=== PATIENT | male | born 1955 | race African-American/Black ===

== ENCOUNTER 2016-07-21 18:28 | Inpatient (IN) | payer OTHER ==
[~2016-07-21] VITALS: Ht 189.5 cm; Wt 107.5 kg
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
--- NOTE | ~2016-07-21 | PR ---
[place], [place] PROGRESS NOTE NAME: CRESENCIO SORTO UNIT #: [id number] ROOM: 310 DOCTOR: OMAR SWAIN BIRTHDATE: [birth year] DOS: 07/26/2016 CHIEF COMPLAINT: "Good morning." SUMMARY OF VISIT: The patient was interviewed in the dining room, where he is watching TV. Very calm, good eye contact. He did ask if he will go home today, and I said it was most likely tomorrow, and he was okay with that. He asked where he would be going, will he be going to his house, I said no, [place]. It initially irritated him, but then he said he "you know what, that is okay, that is where all my stuff is," and he redirected himself without my intervention. MENTAL STATUS: He is alert and oriented to person, place. No overt signs of auditory hallucinations or visual hallucinations. No delusions or paranoia at this time during our conversation. There are some short term memory deficits, but overall intact. PLAN: We are going to continue with his current psychotropics. He seems to be stabilizing. If he is still good tomorrow, we may look at getting him back to [place]. KELLIE SWAIN CNP CM:PNTRANS [id number] OMAR SWAIN 07/27/16 0025 interface
--- NOTE | ~2016-07-21 | PR ---
[place], [place] PROGRESS NOTE NAME: CRESENCIO SORTO UNIT #: [id number] ROOM: 310 DOCTOR: IVET LÓPEZ MD BIRTHDATE: [birth year] DOS: 07/27/2016 CHIEF COMPLAINT: "Sex, sex, sex." SUMMARY OF THE VISIT: The patient was interviewed in the dining area at first he was sitting and engaged in relatively normal conversation then he abruptly stood up, looked around the room and said "sex, sex, sex." He was pleasant; however, he did not offer any agitation or aggression. Nurses report that he is somewhat anxious and the anxiety seems to start triggering some of the agitation. He denied restlessness and did not appear to be akathisia. MENTAL STATUS: He is alert and oriented with time gaps. Mood is still labile. Affect is still inappropriate at times. He jumps from [id number] and has a hard time staying on the here and now. PLAN: I will go ahead and renew his Ativan in case he requires it. I have written for the Invega Sustenna 234 mg IM to be given on the first of the month of August and Haldol decanoate 200 mg IM to be given in the middle of the month on 08/19/2015. I will discontinue his Restoril trying to simplify his regimen given the fact there seems to be an anxiety component that stimulates his agitation. I will start him on Klonopin 1 mg in the morning and 2 mg at bedtime to try to stabilize his mood and decrease his anxiety with the resultant agitation that occurs. Engage him in individual and carias milieu activity with the plan then to return back to [place] when psychiatrically stable. IVET LÓPEZ MD CM:PNTRANS [id number] IVET LÓPEZ MD 08/31/16 1058 interface
--- NOTE | ~2016-07-21 | PR ---
[place], [place] PROGRESS NOTE NAME: CRESENCIO SORTO UNIT #: [id number] ROOM: 310 DOCTOR: JUSTIN NUNES DO BIRTHDATE: [birth year] DOS: 07/24/2016 CHIEF COMPLAINT: "I cannot." SUMMARY OF VISIT: The patient was interviewed in the dining room while he ate the breakfast. The patient stated that he is unable to shake hands because he has maple syrup on his hands. SUBJECTIVE: The patient was not verbal or physically aggressive at this time. The patient is actively hallucinating and paranoid. The patient had poor eye content during the conversation and was looking up and away. MENTAL STATUS: He is alert and oriented to person, unclear of place and unclear of time. The patient is actively hallucinating. The patient is delusional and at times paranoid. The patient can be physically aggressive, but at this time, the patient is trending towards euthymia. PLAN: 1. The patient has stated that he has had problems sleeping. We will start Restoril at night 7.5 mg. 2. Continue current psychiatric medical management with the hopes of reducing pill numbers due to the patient being paranoid about the amount of pills he takes. We will continue to try to stabilize him and encouraged him to participate in individual and carias milieu activities with the hopes of returning to [place] when psychiatrically stable. JUSTIN NUNES DO IVET LÓPEZ MD CM:PNTRANS 2 6 JUSTIN NUNES DO 07/24/1626 interface
--- NOTE | ~2016-07-21 | PR ---
[place], [place] PROGRESS NOTE NAME: CRESENCIO SORTO UNIT #: [id number] ROOM: 310 DOCTOR: IVET LÓPEZ MD BIRTHDATE: [birth year] DOS: 07/24/2016 ADDENDUM: Above note reviewed. Agree with observations, recommendations, and overall treatment plan. IVET LÓPEZ MD CM:PNTRANS [id number] IVET LÓPEZ MD 09/18/16 1428 interface
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
--- NOTE | ~2016-07-21 | PR ---
[place], [place] PROGRESS NOTE NAME: CRESENCIO SORTO UNIT #: [id number] ROOM: 310 DOCTOR: OMAR SWAIN BIRTHDATE: [birth year] DOS: 07/25/2016 CHIEF COMPLAINT: "Good morning, what's your name again." SUMMARY OF VISIT: The patient was interviewed in the dining room. He engaged readily in conversation, was pleasant, good eye contact. Apparently, there were some behaviors last night watching the inauguration of [employer] Liang, the channel was changed and the patient calmed down. MENTAL STATUS: He is alert and oriented to person and place, unsure about time. No overt signs of hallucinating, but he was yesterday according to nurses. There could be some delusions and paranoia at times, but the patient is starting to be a little bit more redirectable. PLAN: He was started on Restoril last night, states that his sleep was good. We will continue his other psychotropics, try to engage in individual and carias milieu therapy, redirect when we can, behavior modifications when he can and long-term goal is to get him back to [facility] once stable. KELLIE SWAIN CNP CM:PNTRANS [id number] OMAR SWAIN 07/25/16 1523 interface
--- NOTE | ~2016-07-21 | PR ---
[place], [place] PROGRESS NOTE NAME: CRESENCIO SORTO UNIT #: [id number] ROOM: 310 DOCTOR: OMAR SWAIN BIRTHDATE: [birth year] DOS: 07/23/2016 CHIEF COMPLAINT: "Good morning." SUMMARY OF VISIT: The patient was interviewed in the dining room where he had just finished breakfast. It should be noted that it took apparently 6-10 people last night to transfer him to [facility] for an hour. Last night, he became physically and verbally aggressive, threatening to harm self and others. When the nurses spoke to him this morning, he stated it was because of the attempts to check his blood sugar and the number of pills that he is being required to take. I am going to go ahead and DC the blood glucose checks. His blood glucoses have been within normal limits. I am familiar with him from [facility]. He refuses to let them check his sugars at [facility], so it is really moot point, if this is causing this kind of progression. As far as his medications, Dr. Og reviewed all his medications. We will try to simplify as much as possible and let him know this and he was grateful. The patient is actively hallucinating and paranoid like he was last night. When I was talking to him, he was looking away and looking up, but I was able to get some eye contact and a decent conversation with him at times. MENTAL STATUS: He is alert and oriented to person, place, I do not know about time, but again actively hallucinating, delusional and paranoid at times, physically aggressive. PLAN: Again, we simplified medications as much as possible. He just received his Invega Sustenna injection, the first of the month. We are keeping the Haldol at night, but we are trying to get it into 1 pill, instead of 4 small pills since a number of pills is an issue with him. He has no side effects of any of the medications at this point in time. We will continue to try to stabilize him with a long-term goal to get him back to [facility] once stable. KELLIE SWAIN CNP CM:PNTRANS 0801 0000 OMAR SWAIN 08/31/16 1101 interface
[~2016-07-21 18:28] MED LIST: ARICEPT5 M1 PO; ASPIRIN325 M2 PO; ATORVASTATIN CA20 M1 PO; BENZTROPINE MESY1 MG PO; CELEXA40 MG PO; COL-RITE100 M1 PO; DEPAKOTE DR500 MG PO; DICYCLOMINE HCL20 MG PO; GLUCOPHAGE1000 MG PO; INVEGA SUSTENN156 MG IM; KOSHER PRENATA1 EACH PO; LACTULOSE20 GM/30 M PO; LANTUS100 U/ML SQ; LATU80TA PO; LISINOPRIL10 M1 PO; LISINOPRIL5 MG PO; METOPROLOL SUC100 M1 PO; MIRTAZAPINE15 M2 PO; MOM30 M1 PO; POLYETHYLENE GL1 P16; Ranitidine Hyd150 MG PO; SEROQUEL XR400 MG PO; TRAZODONE150 MG PO; TYLENOL325 M2 PO; VISTARIL50 MG PO; VITAMIN D50000 I3 PO
[2016-07-21] MEDS ORDERED: HALDOL5 MG PO ×2 (19:31→19:32)
[2016-07-21] MEDS ORDERED: INVEGA SUSTENN234 MG IM (19:33)
[2016-07-21 23:18] VITALS: BP 138/85
[2016-07-21 23:24] VITALS: BP 138/85
[2016-07-22 00:36] VITALS: BP 138/85
[2016-07-22 07:40] LABS: BASO % 0.6 % (0.0-1.0); EOS # 0.1 10*3/uL (0.0-0.4); EOS % 2.1 % (1.0-4.0); HEMATOCRIT 36.8 % (42.0-52.0); HEMOGLOBIN 11.9 g/dl (14.0-18.0); LYMPH % 21.7 % (27.0-41.0); MEAN CELL VOLUME 92.5 fl (80.0-94.0); MEAN CORPUSCULAR HGB 29.9 pg (27.0-31.0); MEAN CORPUSCULAR HGB CONC 32.3 g/dl (33.0-37.0); MEAN PLATELET VOLUME 10.3 fl (9.6-12.3); MONO # 0.4 10*3/uL (0.1-1.0); MONO % 9.4 % (3.0-9.0); NEUT # 3.1 10*3/uL (2.3-7.9); PLATELET COUNT AUTOMATED 222 10*3/uL (130-400); RED BLOOD COUNT 3.98 10*6/uL (4.50-5.90); RED CELL DISTRI WIDTH 13.2 % (0-14.5); WHITE BLOOD COUNT 4.7 10*3/uL (4.8-10.8)
[2016-07-22 07:56] VITALS: BP 125/80
[2016-07-22 08:31] LABS: ALBUMIN 3.5 gm/dl (3.1-4.5); ALKALINE PHOSPHATASE 114 U/L (45-117); BILIRUBIN, TOTAL 0.3 mg/dl (0.2-1.0); BUN 14 mg/dl (7-24); CARBON DIOXIDE 28 mmol/L (21-32); CHLORIDE 106 mmol/L (98-107); CHOLESTEROL 135 mg/dL (<200); EST GLOM FILT AFRICAN AMERICAN > 60 ml/min; GLUCOSE 112 mg/dL (65-99); HDL CHOLESTEROL 48 mg/dl (40-60); LDL CHOLESTEROL 78 mg/dL (9-159); SGOT/AST 14 IU/L (3-35); SGPT/ALT 27 U/L (12-78); SODIUM 143 mmol/L (136-145); TOTAL PROTEIN 7.4 gm/dL (6.4-8.2); TRIGLYCERIDES 47 mg/dl (<150); VLDL CHOLESTEROL 9 mg/dL (6-40)
[2016-07-22 09:44] LABS: VITAMIN D, 25-HYDROXY 94.2 ng/mL (30-100)
[2016-07-22 10:26] LABS: FOLIC ACID > 24.00 ng/mL (>5.38)
[2016-07-22 19:50] VITALS: BP 126/72
[2016-07-23 07:39] VITALS: BP 136/75
[2016-07-23 20:00] VITALS: BP 132/78
[2016-07-24 07:58] LABS: BILIRUBIN NEGATIVE (NEGATIVE); BLOOD NEGATIVE (NEGATIVE); CLARITY CLEAR (CLEAR); COLOR YELLOW (YELLOW); GLUCOSE NEGATIVE (NEGATIVE); KETONE NEGATIVE (NEGATIVE); LEUKO ESTERASE NEGATIVE (NEGATIVE); NITRITE NEGATIVE (NEGATIVE); PROTEIN NEGATIVE (NEGATIVE); SPECIFIC GRAVITY <= 1.005 (1.005-1.030); UROBILINOGEN 0.2 E.U./dl (0.2-1.0)
[2016-07-24 08:35] VITALS: BP 135/79
[2016-07-24 08:51] LABS: URINE REFLEX COMMENT NO (NO)
[2016-07-25 07:49] VITALS: BP 131/71
[2016-07-25 19:36] VITALS: BP 143/73
[2016-07-26 07:47] VITALS: BP 115/87
[2016-07-27 08:10] VITALS: BP 136/73
[2016-07-27 19:58] VITALS: BP 130/76
[2016-07-27 20:00] VITALS: BP 130/76
[2016-07-28 07:36] VITALS: BP 133/84
[2016-07-28] MEDS ORDERED: VITAMIN D50000 I3 PO (09:03)
[2016-07-28] MEDS ORDERED: HALDOL5 MG PO (09:03)
[2016-07-28] MEDS ORDERED: INVEGA SUSTENN234 MG IM (09:03)
[2016-07-28] MEDS ORDERED: INVEGA6 MG PO (09:03)
[2016-07-28] MEDS ORDERED: HALOPERIDO100 MG/1 M IM (09:03)
[2016-07-28] MEDS ORDERED: KLONOPIN2 M1 PO (09:03)
[2016-07-28] MEDS ORDERED: BENZTROPINE MESY1 MG PO (09:03)
[2016-07-28] MEDS ORDERED: CLONAZEPAM1 MG PO (09:03)
== END 2016-07-28 13:15 | DRG 885 ==
LOC: 3N 18:28
PROVIDERS: Psychiatry & Neurology Psychiatry
DX: F25.9 Schizoaffective disorder, unspecified (principal); E11.22 Type 2 diabetes mellitus with diabetic chronic kidney disease; F23 Brief psychotic disorder; E11.65 Type 2 diabetes mellitus with hyperglycemia; N18.9 Chronic kidney disease, unspecified; E78.5 Hyperlipidemia, unspecified; K21.9 Gastro-esophageal reflux disease without esophagitis; D64.9 Anemia, unspecified; I12.9 Hypertensive chronic kidney disease with stage 1 through stage 4 chronic kidney disease, or unspecified chronic kidney disease; Z98.890 Other specified postprocedural states; Z83.3 Family history of diabetes mellitus; Z79.899 Other long term (current) drug therapy; Z79.84 Long term (current) use of oral hypoglycemic drugs; Z79.82 Long term (current) use of aspirin; Z72.0 Tobacco use

== ENCOUNTER 2017-05-31 13:47 | Inpatient (IN) | payer OTHER ==
[~2017-05-31] VITALS: Ht 187.9 cm; Wt 118.9 kg
--- NOTE | ~2017-05-31 | PR ---
[place], [place] PROGRESS NOTE NAME: CRESENCIO SORTO UNIT #: [id number] ROOM: 314 DOCTOR: IVET LÓPEZ MD BIRTHDATE: [birth year] DOS: 06/03/2017 INTERVAL NOTE. CHIEF COMPLAINT: "Good morning, do I get to go home soon, I am ready." SUMMARY OF THE VISIT: The patient was interviewed in his room. He was sitting at the edge of his bed, getting ready for breakfast. He engaged in meaningful conversation and reported no complaints, stating that he slept well and feels well and was asking when he would be going back to [facility]. Staff note that his behavior has been under control. He has not exhibited mood lability or agitation and his psychotic symptoms seem to have waned in both frequency and intensity. He is tolerating the current medications well, and I noticed no sedation, somnolence, extrapyramidal symptoms or tardive dyskinesia. MENTAL STATUS: He is alert and oriented with just mild time gaps. Mood does seem to be significantly trending towards euthymia and affect is much more appropriate. There are no symptoms of floridalma or hypomania. There are no overt auditory or visual hallucinations. No voiced delusions. Memory for the most part is intact. PLAN: Given the fact that I did adjust his Klonopin dose upon admission, I will check a clonazepam level in the morning to ensure that it is therapeutic and not too high leading to increased side effects. We will continue to engage him in individual and carias milieu activity with the plan to return to [facility] when stable. IVET LÓPEZ MD CM:PNTRANS 0841 IVET LÓPEZ MD 06/03/17 0904 interface
--- NOTE | ~2017-05-31 | PR ---
[place], [place] PROGRESS NOTE NAME: CRESENCIO SORTO UNIT #: [id number] ROOM: 314 DOCTOR: CHRIS PETERS,JACY BIRTHDATE: [birth year] DOS: CHIEF COMPLAINT: "I like breakfast." SUBJECTIVE: The patient is seen today, sitting in dining area, just had his breakfast, which he liked. He did engage, but his talk did not make much sense. He is still internally occupied and psychotic. He did smile at times, but did not stay engaged and ended the conversation. MENTAL STATUS EXAMINATION: The patient is awake, alert, did not answer the questions, broken eye contact, speech garbled, did not make much sense, very disorganized in his thoughts, seems responding to unseen. PLAN: The patient needs further stabilization, shall continue his care and try and engage him in carias milieu as he is more stable. JACY PEREZ MD CM:PNTRANS [id number] JACY PEREZ MD 06/06/17 1058 interface
--- NOTE | ~2017-05-31 | PR ---
[place], [place] PROGRESS NOTE NAME: CRESENCIO SORTO UNIT #: [id number] ROOM: 314 DOCTOR: IVET LÓPEZ MD BIRTHDATE: [birth year] DOS: 06/02/2017 CHIEF COMPLAINT: "I need some toothpaste and my shruthi is clean." SUMMARY OF THE VISIT: The patient was interviewed in his room. He was resting in bed, but did awake quickly, sat at the edge of his bed and engaged in reasonable conversation with me. He first requested that I find his jeans for him and later requested that I also get him some toothpaste. He was very goal directed in his speech, very much on target. It was not until we were done with conversation did he start mumbling nonsensically under his breath. Nurses report that overall he has been much more compliant. He has been following direction and he has not been agitated or aggressive. He has tolerated the medication regimen well and I see no tardive dyskinesia, extrapyramidal symptoms, sedation or somnolence. MENTAL STATUS: He is alert and oriented. Mood does seem to be strongly trending towards euthymia. Affect is much more appropriate. There are no symptoms of floridalma or hypomania. The psychotic symptoms are much less intense and less frequent. Memory for the most part is intact. PLAN: Maintain his current psychotropic regimen, which includes Invega Sustenna 234 mg monthly with Haldol Decanoate 300 mg monthly, Klonopin 1 mg twice a day and 2 mg at bedtime. I did discuss with the patient his wishes and whether he wanted to return back to [facility] when psychiatrically stable and he resoundingly said he likes it at [facility] and would like to go back. We will plan to discharge then when psychiatrically stable. IVET LÓPEZ MD CM:PNTRANS 0751 IVET LÓPEZ MD 06/02/17 0925 interface
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
--- NOTE | ~2017-05-31 | PR ---
[place], [place] PROGRESS NOTE NAME: CRESENCIO SORTO UNIT #: [id number] ROOM: 314 DOCTOR: MELANY KWONG,MY BIRTHDATE: [birth year] DOS: 06/04/2017 CHIEF COMPLAINT: "Good morning." SUMMARY OF THE VISIT: The patient was interviewed in the dining room just finished his breakfast. States he slept alright last night and feels great today. He has no complaints or concerns today. He expresses his interest to be discharged to somewhere else besides [facility]. He is tolerating the current medications well. No sedation, somnolence or extra pyramidal symptoms or dyskinesia noted. MENTAL STATUS: The patient is alert and oriented with some time gaps, appropriate affect. Mood is somewhat trending towards euthymia. No symptoms of floridalma or hypomania. There are no overt auditory or visual hallucinations, or delusions. Recent memory intact. PLAN: Klonopin level is pending. RPR nonreactive. We will continue to engage the patient in individual and carias milieu activity with the plan to be discharged when he is psychiatrically stable. Nothing changed on his medication, we are going to maintain the same current treatment. MY DO MELANY IVET LÓPEZ MD CM:PNLAINEY [id number] ANTOINE MOSLEY DO 06/04/17 1205 interface
--- NOTE | ~2017-05-31 | PR ---
[place], [place] PROGRESS NOTE NAME: CRESENCIO SORTO UNIT #: [id number] ROOM: 314 DOCTOR: CHRIS PETERS,JACY BIRTHDATE: [birth year] DOS: CHIEF COMPLAINT: "I had breakfast." SUBJECTIVE: The patient is 61-year-old male, resident of [facility] in [place], has long history of schizoaffective disorder and has been in treatment for long. He had exacerbation of his symptoms due to noncompliance and then he had been observed to be internally occupied, responding to unseen and hearing some voices. Today he is seen in dining area, sitting in chair, did have some talks, but did not make much sense. He is still very psychotic, internally occupied, responding to unseen. As per nurse's report, he did sleep okay last night, had his meals. He has been calmer and has been taking his medicines now. MENTAL STATUS EXAMINATION: The patient is alert, awake. He could engage, but did not make meaningful conversation. He is still internally occupied and responding to unseen. PLAN: The patient needs further stabilization, shall continue his care and try to engage him with carias heart milieu as he is more stable. JACY PEREZ MD CM:PNTRANS [id number] JACY PEREZ MD 06/05/17 1041 interface
[~2017-05-31 13:47] MED LIST changes: +CLONAZEPAM1 MG PO; +HALDOL5 MG PO; +HALOPERIDO100 MG/1 M IM; +INVEGA SUSTENN234 MG IM; +INVEGA6 MG PO; +KLONOPIN2 M1 PO; +LANTUS SOL100 UNIT/1 SC; -LANTUS100 U/ML SQ
[2017-05-31] MEDS ORDERED: BIOFREEZE118 ML T (14:00)
[2017-05-31 16:38] VITALS: BP 153/89
[2017-05-31 20:00] VITALS: BP 139/87
[2017-06-01 04:45] LABS: BASO % 0.7 % (0.0-1.0); EOS # 0.3 10*3/uL (0.0-0.4); EOS % 5.4 % (1.0-4.0); HEMATOCRIT 37.8 % (42.0-52.0); HEMOGLOBIN 12.3 g/dl (14.0-18.0); LYMPH # 1.3 10*3/uL (1.3-4.4); LYMPH % 24.1 % (27.0-41.0); MEAN CELL VOLUME 90.6 fl (80.0-94.0); MEAN CORPUSCULAR HGB 29.5 pg (27.0-31.0); MEAN CORPUSCULAR HGB CONC 32.5 g/dl (33.0-37.0); MEAN PLATELET VOLUME 10.3 fl (9.6-12.3); MONO # 0.6 10*3/uL (0.1-1.0); MONO % 10.6 % (3.0-9.0); NEUT # 3.2 10*3/uL (2.3-7.9); PLATELET COUNT AUTOMATED 230 10*3/uL (130-400); RED BLOOD COUNT 4.17 10*6/uL (4.50-5.90); RED CELL DISTRI WIDTH 13.3 % (0-14.5); WHITE BLOOD COUNT 5.4 10*3/uL (4.8-10.8)
[2017-06-01 05:02] LABS: ALBUMIN 3.4 gm/dl (3.1-4.5); ALKALINE PHOSPHATASE 138 U/L (45-117); BUN 16 mg/dl (7-24); CHLORIDE 102 mmol/L (98-107); CHOLESTEROL 149 mg/dL (<200); CREATININE 1.12 mg/dL (0.70-1.30); HDL CHOLESTEROL 41 mg/dl (40-60); LDL CHOLESTEROL 64 mg/dL (9-159); POTASSIUM 3.8 mmol/L (3.5-5.1); SGOT/AST 15 IU/L (3-35); SODIUM 136 mmol/L (136-145); TOTAL PROTEIN 7.7 gm/dL (6.4-8.2); TRIGLYCERIDES 220 mg/dl (<150); VLDL CHOLESTEROL 44 mg/dL (6-40)
[2017-06-01 05:11] LABS: SGPT/ALT 45 U/L (12-78); THYROID STIM HORMONE (HS) 0.972 uIU/ml (0.358-4.75)
[2017-06-01 07:59] LABS: VITAMIN D, 25-HYDROXY 45.4 ng/mL (30-100)
[2017-06-01 08:10] VITALS: BP 163/89
[2017-06-01 20:09] VITALS: BP 143/84
[2017-06-02 08:00] VITALS: BP 154/77
[2017-06-02 20:00] VITALS: BP 134/71
[2017-06-03 08:10] VITALS: BP 136/87
[2017-06-03 20:00] VITALS: BP 130/75
[2017-06-04 07:46] VITALS: BP 140/68
[2017-06-04 20:00] VITALS: BP 126/82
[2017-06-05 08:05] VITALS: BP 118/72
[2017-06-05 19:52] VITALS: BP 137/82
[2017-06-06 08:01] VITALS: BP 140/79
[2017-06-06 20:00] VITALS: BP 139/76
[2017-06-07 07:48] VITALS: BP 154/83
[2017-06-07] MEDS ORDERED: HALOPERIDO100 MG/1 M IM (09:05)
[2017-06-07] MEDS ORDERED: Vitamin D PO (09:05)
[2017-06-07] MEDS ORDERED: KLONOPIN2 M1 PO (09:05)
[2017-06-07] MEDS ORDERED: LACTULOSE20 GM/30 M PO (09:05)
[2017-06-07] MEDS ORDERED: BENZTROPINE MESY1 MG PO (09:05)
[2017-06-07] MEDS ORDERED: INVEGA SUSTENN234 MG IM (09:05)
[2017-06-07] MEDS ORDERED: CLONAZEPAM1 MG PO ×2 (09:05)
[2017-06-08 00:10] LABS: CLONAZEPAM (KLONOPIN),SERUM 10 ng/mL (20-70)
== END 2017-06-07 11:22 | disposition home or self-care (01) | DRG 885 ==
LOC: 3N 13:47
PROVIDERS: ADMIT Psychiatry & Neurology Psychiatry
DX: F25.9 Schizoaffective disorder, unspecified (principal); E11.22 Type 2 diabetes mellitus with diabetic chronic kidney disease; F23 Brief psychotic disorder; N18.9 Chronic kidney disease, unspecified; K21.9 Gastro-esophageal reflux disease without esophagitis; E78.5 Hyperlipidemia, unspecified; I12.9 Hypertensive chronic kidney disease with stage 1 through stage 4 chronic kidney disease, or unspecified chronic kidney disease; F17.200 Nicotine dependence, unspecified, uncomplicated; D64.9 Anemia, unspecified; Z79.899 Other long term (current) drug therapy; Z83.3 Family history of diabetes mellitus

== ENCOUNTER 2017-08-31 22:09 | Inpatient (IN) | payer OTHER ==
[~2017-08-31] VITALS: Ht 187.9 cm; Wt 113.9 kg
--- NOTE | ~2017-08-31 | PR ---
[place], [place] PROGRESS NOTE NAME: CRESENCIO SORTO UNIT #: [id number] ROOM: 314 DOCTOR: BASIM LAZCANO MD BIRTHDATE: [birth year] DOS: 09/03/2017 SUBJECTIVE: The patient seen and spoke with the staff. Per staff, the patient was very agitated yesterday and almost attacked to staff, only took the Klonopin. He needed p.r.n. IM stat medication. The patient was on his bed. He was sleepy as he received stat medication last night, but he mentioned that he is doing well. Did not express any other bone problems or concerns. The patient was pleasant, cooperative. He reports doing well. He denied any auditory or visual hallucination. He denies any side effect from the medication also. MENTAL STATUS EXAMINATION: Pleasant, cooperative. Describes his mood as "okay." Affect sleepy and tired. Thought process goal directed. No flight of ideas, loosening of association. He denied auditory or visual hallucination. No delusion or paranoia noted. He denied suicidal ideation, intent or plan. He also denied homicidal ideation, intent or plan. ASSESSMENT: Schizoaffective disorder. PLAN: 1. Continue current medications and care. 2. Add Depakote 1000 mg p.o. b.i.d. 3. Continue redirection. BASIM LAZCANO MD CM:PNTRANS [id number] BASIM LAZCANO MD 09/04/17 0018 interface
--- NOTE | ~2017-08-31 | PR ---
[place], [place] PROGRESS NOTE NAME: CRESENCIO SORTO UNIT #: [id number] ROOM: 314 DOCTOR: BASIM LAZCANO MD BIRTHDATE: [birth year] DOS: 09/05/2017 SUBJECTIVE: The patient seen and I spoke with the staff. Per staff, the patient took the Depakote last night. No behavior problems or issues. He also got the Haldol Decanoate injection. The patient was on his bed. He got up when I called his name. He reports doing well. He looks calm and cooperative. Denied depressed mood or hopelessness. Denied any psychotic symptoms. MENTAL STATUS EXAMINATION: Pleasant, cooperative, described his mood as "okay." Affect, mood congruent. Thought process goal directed. No flight of ideas, loosening of association. He denied auditory or visual hallucination. No delusion or paranoia noted. He denied suicidal ideation, intent or plan. He also denied any homicidal ideation, intent or plan. ASSESSMENT: Schizoaffective disorder. PLAN: 1. Continue current medication and care. 2. Continue redirection. 3. Supportive care. BASIM LAZCANO MD CM:PNTRANS [id number] [phone] BASIM LAZCANO MD 09/05/172149 interface
--- NOTE | ~2017-08-31 | PR ---
[place], [place] PROGRESS NOTE NAME: CRESENCIO SORTO UNIT #: [id number] ROOM: 314 DOCTOR: IVET LÓPEZ MD BIRTHDATE: [birth year] DOS: 09/06/2017 CHIEF COMPLAINT: "I had a good weekend doctor, how about you." SUMMARY OF THE VISIT: The patient was interviewed as he was finishing his breakfast in the dining area. He engaged readily in pleasant conversation. He reports that he had a good weekend that the medicines are working and he is anxious to go back to [place]. He states that he realizes he might have to wait a day when we get transportation, even knew which type of transportation he would get. He convincingly denies medication side effects. MENTAL STATUS: He is alert and oriented. Mood does seem to be euthymic. Affect is more appropriate. There is no floridalma or hypomania. There are no psychotic symptoms. Memory for the most part is fully intact. PLAN: I will maintain his current psychotropic regimen as he is getting benefit without side effects. We will finalize what we need to do for discharge and discharge to the least restrictive environment when psychiatrically stable. IVET LÓPEZ MD CM:PNTRANS [id number] IVET LÓPEZ MD 09/06/17 1016 interface
--- NOTE | ~2017-08-31 | PR ---
[place], [place] PROGRESS NOTE NAME: CRESENCIO SORTO UNIT #: [id number] ROOM: 314 DOCTOR: BASIM LAZCANO MD BIRTHDATE: [birth year] DOS: 09/04/2017 SUBJECTIVE: The patient seen and spoke with the staff. Per staff, the patient was agitated at times, mostly when blood sugar checked, but otherwise he is much calmer. Reportedly, he refused his a.m. Depakote. The patient was pleasant and cooperative. He was in the day area. When I asked him that why he refused Depakote, he did not tell me anything, but said that he will take the Depakote from now on. He reports doing well. Did not express any problems or concerns. Denied any side effect from the medication. MENTAL STATUS EXAMINATION: Pleasant, cooperative. Described his mood as "okay " Affect, mood congruent. Thought process, goal directed. No flight of ideas or loosening of association. He denies auditory or visual hallucination. No delusion or paranoia noted. He denied any suicidal ideation, intent or plan. He also denied any homicidal ideation, intent or plan. ASSESSMENT: Schizoaffective disorder. PLAN: 1. Continue current medication and care. 2. Continue redirection. 3. Encourage activities and groups. BASIM LAZCANO MD CM:PNTRANS [id number] BASIM LAZCANO MD 09/04/17 2314 interface
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
[~2017-08-31 22:09] MED LIST changes: +BIOFREEZE118 ML T; +Vitamin D PO
[2017-08-31] MEDS ORDERED: HALDOL5 MG PO (22:44)
[2017-09-01 15:06] VITALS: BP 150/86
[2017-09-01 15:55] LABS: BASO % 0.7 % (0.0-1.0); EOS # 0.1 10*3/uL (0.0-0.4); EOS % 2.2 % (1.0-4.0); HEMATOCRIT 38.9 % (42.0-52.0); HEMOGLOBIN 13.1 g/dl (14.0-18.0); LYMPH % 35.6 % (27.0-41.0); MEAN CELL VOLUME 89.6 fl (80.0-94.0); MEAN CORPUSCULAR HGB 30.2 pg (27.0-31.0); MEAN CORPUSCULAR HGB CONC 33.7 g/dl (33.0-37.0); MEAN PLATELET VOLUME 10.8 fl (9.6-12.3); MONO # 0.3 10*3/uL (0.1-1.0); MONO % 11.6 % (3.0-9.0); NEUT # 1.4 10*3/uL (2.3-7.9); NEUT % 49.5 % (47.0-73.0); PLATELET COUNT AUTOMATED 165 10*3/uL (130-400); RED BLOOD COUNT 4.34 10*6/uL (4.50-5.90); RED CELL DISTRI WIDTH 13.2 % (0-14.5); WHITE BLOOD COUNT 2.8 10*3/uL (4.8-10.8)
[2017-09-01 16:14] LABS: ALBUMIN 3.8 gm/dl (3.1-4.5); ALKALINE PHOSPHATASE 161 U/L (45-117); BUN 13 mg/dl (7-24); CHLORIDE 99 mmol/L (98-107); POTASSIUM 4.2 mmol/L (3.5-5.1); SGOT/AST 23 IU/L (3-35); SGPT/ALT 57 U/L (12-78); SODIUM 132 mmol/L (136-145); TOTAL PROTEIN 8.6 gm/dL (6.4-8.2)
[2017-09-01 16:19] LABS: THYROID STIM HORMONE (HS) 0.671 uIU/ml (0.358-4.75)
[2017-09-01 16:30] VITALS: BP 150/86
[2017-09-01 16:32] LABS: VITAMIN D, 25-HYDROXY 48.4 ng/mL (30-100)
[2017-09-01 20:02] VITALS: BP 150/86
[2017-09-01] MEDS ORDERED: DICYCLOMINE HYD20 MG PO ×2 (23:53→23:54)
[2017-09-02 08:52] VITALS: BP 127/83
[2017-09-02] MEDS ORDERED: INVEGA SUSTENN234 MG IM (16:03)
[2017-09-02 16:46] LABS: BILIRUBIN NEGATIVE (NEGATIVE); BLOOD TRACE-INTACT (NEGATIVE); CLARITY CLEAR (CLEAR); COLOR YELLOW (YELLOW); GLUCOSE 2+ (NEGATIVE); KETONE NEGATIVE (NEGATIVE); LEUKO ESTERASE NEGATIVE (NEGATIVE); NITRITE NEGATIVE (NEGATIVE); PH 5.5 (5.0-9.0); UROBILINOGEN 0.2 E.U./dl (0.2-1.0)
[2017-09-02 17:25] LABS: BACTERIA TRACE; EPITHELIAL CELLS 0-2; RBC 0-2 rbc/hpf (0-2)
[2017-09-02 20:00] VITALS: BP 144/81
[2017-09-03 09:33] VITALS: BP 134/87
[2017-09-03 20:09] VITALS: BP 133/77
[2017-09-04 08:04] VITALS: BP 135/71
[2017-09-04 20:00] VITALS: BP 126/73
[2017-09-05 08:05] VITALS: BP 144/81
[2017-09-05 20:14] VITALS: BP 133/80
[2017-09-06 08:49] VITALS: BP 112/88
[2017-09-06 20:11] VITALS: BP 121/72
[2017-09-07 08:13] VITALS: BP 123/73
[2017-09-07] MEDS ORDERED: KLONOPIN2 M1 PO (10:19)
[2017-09-07] MEDS ORDERED: LACTULOSE20 GM/30 M PO (10:19)
[2017-09-07] MEDS ORDERED: INVEGA SUSTENN234 MG IM (10:19)
[2017-09-07] MEDS ORDERED: BENZTROPINE MESY1 MG PO (10:19)
[2017-09-07] MEDS ORDERED: HALOPERIDO100 MG/1 M IM (10:19)
[2017-09-07] MEDS ORDERED: Vitamin D PO (10:19)
[2017-09-07] MEDS ORDERED: DIVALPROEX SOD500 MG PO (10:19)
[2017-09-07] MEDS ORDERED: CLONAZEPAM1 MG PO ×2 (10:19)
== END 2017-09-07 14:35 | DRG 885 ==
LOC: 3N 22:09
PROVIDERS: Psychiatry & Neurology Psychiatry
DX: F25.9 Schizoaffective disorder, unspecified (principal); E11.22 Type 2 diabetes mellitus with diabetic chronic kidney disease; F23 Brief psychotic disorder; N18.9 Chronic kidney disease, unspecified; K21.9 Gastro-esophageal reflux disease without esophagitis; I12.9 Hypertensive chronic kidney disease with stage 1 through stage 4 chronic kidney disease, or unspecified chronic kidney disease; E78.5 Hyperlipidemia, unspecified; D64.9 Anemia, unspecified; F17.200 Nicotine dependence, unspecified, uncomplicated; Z79.899 Other long term (current) drug therapy; Z79.82 Long term (current) use of aspirin; Z79.84 Long term (current) use of oral hypoglycemic drugs; Z91.14 Patient's other noncompliance with medication regimen